=== PATIENT | female | born 2000 | race Caucasian/White ===

== ENCOUNTER 2018-03-09 22:38 | Outpatient (CLI) | payer MEDICAID, SELFPAY ==
[2018-03-09 23:24] VITALS: BMI 43.3
--- NOTE | 2018-03-10 08:17 | OB.TRI.NOTE ---
- Problem List (1) Decreased movement Status: Acute History of Present Illness Date of Service: 03/09/18 Was patient seen by the physician?: No Reason For Visit: DECREASED MOVEMENT Gestational age: 21 weeks Allergies No Known Allergies Allergy (Verified 03/09/18 23:20) Impression/Plan Pt presented with DFM at 21 weeks gestational age. +FHT obtained. Discharged home.
== END 2018-03-09 23:30 | disposition home or self-care (01) ==
LOC: WPOUT 23:07 → WP 23:08
PROVIDERS: Visit Provider Obstetrics & Gynecology
DX: O36.8120 Decreased fetal movements, second trimester, not applicable or unspecified (principal); Z3A.21 21 weeks gestation of pregnancy
CPT/HCPCS: 59050; 99218; G0378

== ENCOUNTER 2018-05-22 22:50 | Outpatient (CLI) | payer MEDICAID, SELFPAY ==
[2018-05-23 00:13] VITALS: BMI 46.7
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
== END 2018-05-23 00:43 | disposition home or self-care (01) ==
LOC: WPOUT 23:28 → WP 23:29
PROVIDERS: Referring Provider Obstetrics & Gynecology; Visit Provider Obstetrics & Gynecology
DX: O9A.213 Injury, poisoning and certain other consequences of external causes complicating pregnancy, third trimester (principal); S60.511A Abrasion of right hand, initial encounter; M79.10 Myalgia, unspecified site; V40.5XXA Car driver injured in collision with pedestrian or animal in traffic accident, initial encounter; Y93.9 Activity, unspecified; Y92.9 Unspecified place or not applicable; Y99.9 Unspecified external cause status; Z3A.32 32 weeks gestation of pregnancy
CPT/HCPCS: 59025; 59050; 99218; G0378

== ENCOUNTER 2018-07-04 20:27 | Outpatient (CLI) | payer MEDICAID, SELFPAY ==
[2018-07-04 21:07] VITALS: BMI 48.9
[2018-07-04 21:29] LABS: ROM Internal Control Test YES-OK TO RESULT pt. (Internal QC)
[2018-07-04 21:31] LABS: ROM Patient Test POSITIVE (Negative); Record Kit Lot#, ROM+ J7836
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
[2018-07-05 05:30] LABS: ROM Internal Control Test YES-OK TO RESULT pt. (Internal QC); ROM Patient Test Negative (Negative); Record Kit Lot#, ROM+ J7836
--- NOTE | 2018-07-05 10:02 | PCM.PN.BLA ---
Progress Note No leakage of fluid overnight per RN. Repeat ROM plus in AM negative. Discussed pt with Dr. Zarate for 2nd opinion. Will plan for fern and JILLIAN on Saturday in the office. Strict return precautions.
== END 2018-07-05 05:55 | disposition home or self-care (01) ==
LOC: WPOUT 20:52 → WP 20:52
PROVIDERS: Referring Provider Obstetrics & Gynecology; Visit Provider Obstetrics & Gynecology
DX: O26.893 Other specified pregnancy related conditions, third trimester (principal); N89.8 Other specified noninflammatory disorders of vagina
CPT/HCPCS: 59025; 59050; 76815; 84112; 99218; G0378

== ENCOUNTER 2018-07-12 18:15 | Outpatient (CLI) | payer MEDICAID, SELFPAY ==
[2018-07-12 18:30] VITALS: BMI 47.9
[2018-07-12 19:17] LABS: ROM Internal Control Test YES-OK TO RESULT pt. (Internal QC); ROM Patient Test Negative (Negative)
--- NOTE | 2018-07-12 20:12 | OB.TRI.NOTE ---
- Problem List (1) Vaginal discharge during Status: Acute History of Present Illness Date of Service: 07/12/18 Was patient seen by the physician?: Yes Reason For Visit: RULE OUT SROM Date of Service: 07/12/18 Final NOELLE: 07/16/18 Final NOELLE Source: US <20 weeks Gestational age: 39 Weeks and 3 Days History of Present Illness: presented to L&D with complaint of leakage of fluid, felt like she had increased discharge and unsure if her water broke. Denies contractions but feels some back pain at times. Denies vaginal bleeding or other concerns. Allergies No Known Allergies Allergy (Verified 05/23/18 00:14) Laboratory Studies: Laboratory Tests 07/12/18 Range/Units 18:35 Vag Amniotic Fld Detect Negative (Negative) Review of Systems Constitutional: Denies: Chills, Fever, Weight Change Cardiovascular: Denies: Chest Pain, Palpitations Respiratory: Denies: Cough, Shortness of breath at rest, Sputum production Gastrointestinal: Denies: Abdominal Pain, Nausea, Vomiting Genitourinary: Denies: Dysuria Physical Exam General: Alert, Oriented x3 HEENT: Atraumatic, Normocephalic Lungs: Normal air movement Extremities:: No edema CARBON CAPTURE POWER PLANT MANAGER: Normal external genitalia Presentation: Cephalic Cervix Dilation (cm): 3 - vertex Station: -1 Effacement (%): 70 NST - FHR Rate Baby A Baseline: 145 Variability:: Moderate Accelerations:: 15 x 15 Decelerations:: None NST Reactive:: Yes FHR Category:: Category I Uterine Activity:: Irregular Impression/Plan A:Category 1 FHT P: 1) ROM Plus negative, membranes intact. Reviewed signs of labor and ROM. 2) NST reactive 3) D/C home.
--- NOTE | 2018-07-12 20:17 | OB.TRI.HP_ITS ---
- Problem List (1) Vaginal discharge during Status: Acute History of Present Illness Date of Service: 07/12/18 Was patient seen by the physician?: Yes Reason For Visit: RULE OUT SROM Date of Service: 07/12/18 Final NOELLE: 07/16/18 Final NOELLE Source: US <20 weeks Gestational age: 39 Weeks and 3 Days History of Present Illness: presented to L&D with complaint of leakage of fluid, felt like she had increased discharge and unsure if her water broke. Denies contractions but feels some back pain at times. Denies vaginal bleeding or other concerns. Allergies No Known Allergies Allergy (Verified 05/23/18 00:14) Laboratory Studies: Laboratory Tests 07/12/18 Range/Units 18:35 Vag Amniotic Fld Detect Negative (Negative) Review of Systems Constitutional: Denies: Chills, Fever, Weight Change Cardiovascular: Denies: Chest Pain, Palpitations Respiratory: Denies: Cough, Shortness of breath at rest, Sputum production Gastrointestinal: Denies: Abdominal Pain, Nausea, Vomiting Genitourinary: Denies: Dysuria Physical Exam General: Alert, Oriented x3 HEENT: Atraumatic, Normocephalic Lungs: Normal air movement Extremities:: No edema DERRICK MAN: Normal external genitalia Presentation: Cephalic Cervix Dilation (cm): 3 - vertex Station: -1 Effacement (%): 70 NST - FHR Rate Baby A Baseline: 145 Variability:: Moderate Accelerations:: 15 x 15 Decelerations:: None NST Reactive:: Yes FHR Category:: Category I Uterine Activity:: Irregular Impression/Plan A:Category 1 FHT P: 1) ROM Plus negative, membranes intact. Reviewed signs of labor and ROM. 2) NST reactive 3) D/C home.
== END 2018-07-12 20:20 | disposition home or self-care (01) ==
LOC: WPOUT 18:20 → WP 18:21
PROVIDERS: Visit Provider Advanced Practice Midwife
DX: O26.93 Pregnancy related conditions, unspecified, third trimester (principal); N89.8 Other specified noninflammatory disorders of vagina; Z3A.39 39 weeks gestation of pregnancy
CPT/HCPCS: 59025; 59050; 84112; 99218; G0378

== ENCOUNTER 2018-07-22 09:20 | Inpatient (IN) | payer MEDICAID, SELFPAY ==
[2018-07-22] MEDS: Lactated Ringers 1,000 ML 50 ML IV ×2 (09:34→18:02)
[2018-07-22 09:38] VITALS: BMI 48.4
[2018-07-22 09:56] LABS: Absolute Lymphocyte Count 2.64 X10^3/ul (0.83-4.51); Absolute Neutrophil Count 10.2 X10^3/uL (2.0-7.7); Basophil# 0.01 X10^3/uL; Basophil% 0.1 % (0-1); Eosinophil# 0.18 X10^3/uL; Eosinophils% 1.3 % (0-5); Hematocrit 34.9 % (37-47); Hemoglobin 11.6 g/dl (12.0-15.0); Lymphocyte # 2.64 X10^3/ul (4.0); Lymphocyte % 18.5 % (19-41); Mean Corp Hgb Conc 33.2 g/gl (32-36); Mean Corpuscular Hgb 28.8 pg (27.0-32.0); Mean Corpuscular Volume 86.6 fL (81-99); Mean Platelet Vol. 10.3 fl (6.2-12.0); Monocyte# 1.14 X10^3/uL; Neutrophil # 10.21 X10^3/uL (2.7-7.7); Neutrophil % 71.7 % (47-70); Platelet Count 285 K/mm3 (150-450); RBC Distribution Width SD 43.7 fl (35.1-43.9); Red Blood Count 4.03 M/mm3 (4.2-5.4); White Blood Count 14.2 K/mm3 (4.4-11.0)
[2018-07-22 09:57] LABS: POSITIVE COUNT NO; POSITIVE DIFFERENTIAL NO; POSITIVE MORPHOLOGY NO
[2018-07-22] MEDS: Oxytocin 30 units/NS 500 ml 30 UNITS/500 ML IV.SOLN IV (10:03)
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
[2018-07-22] MEDS: fentaNYL-bupivacaine (epidural) 100 ML BAG EPIDURAL (18:02)
[2018-07-22] MEDS: Lactated Ringers 1,000 ML 15 ML IV (20:45)
[2018-07-22] MEDS: Oxytocin 30 units/NS 500 ml 30 UNITS/500 ML IV.SOLN 334 UNITS IV (20:45)
[2018-07-22] MEDS: Oxytocin 30 units/NS 500 ml 30 UNITS/500 ML IV.SOLN 167 UNITS IV (21:15)
--- NOTE | 2018-07-22 21:31 | PCM.OPRPT ---
Vaginal Delivery Maternal Presentation: Medically Indicated Induction Method of Induction: Pitocin, Amniotomy Medical Reason for Induction: Post term Amniotic Membrane Rupture Type: Artificial Amniotic Fluid Description: Clear Final NOELLE: 07/16/18 Gestational age: 40 Weeks and 6 Days Date of Procedure: 07/22/18 Pre-Operative Diagnosis: Post dates Post-Operative Diagnosis: Same Type of Anesthesia: Epidural Description of Procedure: Patient prepped & draped in stirrups when c/c/+3. She pushed to deliver head. head gently guided to allow deliver shoulders. No excess traction placed on head. Body followed & placed on maternal abdomen. 3VC clamped & cut in delayed fashion. Placenta delivered with gentle traction. Good uterine tone obtained. Presentation: CROW Placental Delivery Description: Expressed Placenta Disposition: [facility] Cord Vessel Description: 3 Vessels Cord Entanglement: None Estimated Blood Loss: 200ml A gender: Female (1 minute): 8 (5 minute): 9 Episiotomy Description: None Laceration: Vaginal Extension/lac - and first degree perineal - repaired with 3-0 vicryl Medications given after delivery: IV Pitocin Complications: None
--- NOTE | 2018-07-22 21:40 | OP.PCM_ITS ---
Vaginal Delivery Maternal Presentation: Medically Indicated Induction Method of Induction: Pitocin, Amniotomy Medical Reason for Induction: Post term Amniotic Membrane Rupture Type: Artificial Amniotic Fluid Description: Clear Final NOELLE: 07/16/18 Gestational age: 40 Weeks and 6 Days Date of Procedure: 07/22/18 Pre-Operative Diagnosis: Post dates Post-Operative Diagnosis: Same Type of Anesthesia: Epidural Description of Procedure: Patient prepped & draped in stirrups when c/c/+3. She pushed to deliver head. head gently guided to allow deliver shoulders. No excess traction placed on head. Body followed & placed on maternal abdomen. 3VC clamped & cut in delayed fashion. Placenta delivered with gentle traction. Good uterine tone obtained. Presentation: CROW Placental Delivery Description: Expressed Placenta Disposition: [facility] Cord Vessel Description: 3 Vessels Cord Entanglement: None Estimated Blood Loss: 200ml A gender: Female (1 minute): 8 (5 minute): 9 Episiotomy Description: None Laceration: Vaginal Extension/lac - and first degree perineal - repaired with 3- 0 vicryl Medications given after delivery: IV Pitocin Complications: None
[2018-07-22] MEDS: 0.9% Saline Lock 10 ML Syringe IV (22:25)
[2018-07-22] MEDS: Ibuprofen 600 MG Tablet PO (23:37)
[2018-07-23] VITALS: BP 119/66; PULSE 117; RESP 20; TEMP 37.1
[2018-07-23 04:06] VITALS: BP 95/51; PULSE 92; RESP 16; TEMP 36.6
[2018-07-23] MEDS: Ibuprofen 600 MG Tablet PO ×3 (06:41→21:57)
[2018-07-23 09:11] VITALS: BP 115/59; PULSE 90; RESP 16; TEMP 36.4
[2018-07-23 11:21] VITALS: BP 106/60; PULSE 91; RESP 16; TEMP 36.3
[2018-07-23 16:00] VITALS: BP 118/72; PULSE 69; RESP 17; TEMP 36.6; O2SAT 99
--- NOTE | 2018-07-23 20:00 | NURSING ---
Pt. called RN to room and asked for assistance with . When this RN walked into the room, pt. was standing holding and infant and crying. RN took infant and swaddled her and mother started crying more, stating she just won't stop crying, I don't know what to do. RN offered emotional support to pt. and helped settle the infant. Pt. calmed down for a little while, then got tearful again when talking on the phone to a friend/family member. RN reassured pt. that crying was okay and educated pt. about baby blues. Will continue to monitor pt's emotional status.
[2018-07-23 21:26] VITALS: BP 115/71; PULSE 100; RESP 16; TEMP 36.7; O2SAT 98
[2018-07-23] MEDS: Dibucaine 30 GM Tube 1 APPLIC TOPICAL (21:58)
[2018-07-24 02:18] VITALS: BP 119/62; PULSE 86; RESP 17; TEMP 36.6
[2018-07-24 08:00] VITALS: BP 113/72; PULSE 88; RESP 16; TEMP 36.6; O2SAT 97
[2018-07-24] MEDS: Ibuprofen 600 MG Tablet PO (08:00)
--- NOTE | 2018-07-24 08:19 | PCM.DCVAG ---
Discharge Diet: No Restrictions Discharge Activity: May Drive, May Shower May resume sexual activity in: 6 weeks Weight Bearing Status: Weight bearing as tolerated Additional Instructions: If you experience any of the following, contact your healthcare provider. Bleeding that soaks a pad every hour for 2 hours Fever 100.4 or higher Unrelieved incision or abdominal pain Swelling, redness, discharge or bleeding from your incision or episiotomy site Your incision begins to separate Problems urinating (including inability to urinate or burning while urinating). Visual changes Severe headache Flu-like symptoms Pain or redness in one of both of your breasts Pain, warmth, tenderness or swelling in your legs, especially the calf area Frequent nausea and vomiting Symptoms of depression or anxiety If you experience any of the following, call 911 or go to the nearest Emergency Room. Chest pain Problems breathing Seizure activity Partial or complete paralysis of a body part, slurred speech, weakness or drooping of the face, or a sudden inability to walk or hold your balance Allergies/Adverse Reactions: Allergies No Known Allergies Allergy (Verified 05/23/18 00:14) Medications to take at Discharge Vit No.130/Iron/Folic [ Tablet] 1 tab PO DAILY 03/09/18 Test Results: Test results from this visit will be discussed in further detail at your follow-up appointment, if applicable.
--- NOTE | 2018-07-24 08:20 | DCINST_ITS ---
Discharge Diet: No Restrictions Discharge Activity: May Drive, May Shower May resume sexual activity in: 6 weeks Weight Bearing Status: Weight bearing as tolerated Additional Instructions: If you experience any of the following, contact your healthcare provider. * Bleeding that soaks a pad every hour for 2 hours * Fever 100.4 or higher * Unrelieved incision or abdominal pain * Swelling, redness, discharge or bleeding from your incision or episiotomy site * Your incision begins to separate * Problems urinating (including inability to urinate or burning while urinating). * Visual changes * Severe headache * Flu-like symptoms * Pain or redness in one of both of your breasts * Pain, warmth, tenderness or swelling in your legs, especially the calf area * Frequent nausea and vomiting * Symptoms of depression or anxiety If you experience any of the following, call 911 or go to the nearest Emergency Room. * Chest pain * Problems breathing * Seizure activity * Partial or complete paralysis of a body part, slurred speech, weakness or drooping of the face, or a sudden inability to walk or hold your balance Allergies/Adverse Reactions: Allergies No Known Allergies Allergy (Verified 05/23/18 00:14) Medications to take at Discharge Vit No.130/Iron/Folic [ Tablet] 1 tab PO DAILY 03/09/18 Test Results: Test results from this visit will be discussed in further detail at your follow- up appointment, if applicable.
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
[2018-07-24] MEDS: Acetaminophen 500 MG Tablet 1000 MG PO (11:14)
[2018-07-24 14:30] VITALS: BP 124/86; PULSE 86; RESP 16; TEMP 36.6
== END 2018-07-24 15:15 | disposition home or self-care (01) | DRG 560 ==
PROVIDERS: Admitting Provider Obstetrics & Gynecology; Referring Provider Obstetrics & Gynecology; Visit Provider Obstetrics & Gynecology
DX: O48.0 Post-term pregnancy (principal); O99.214 Obesity complicating childbirth; E66.01 Morbid (severe) obesity due to excess calories; Z87.891 Personal history of nicotine dependence; Z3A.40 40 weeks gestation of pregnancy; Z37.0 Single live birth
CPT/HCPCS: 59025; 59050; 85025; 85461; 86850; 86900; 90384; 99218; J7120; A4216; G0378; J2790

== ENCOUNTER 2019-07-19 16:00 | Emergency (ER) | payer SELFPAY ==
[2019-07-19 16:00] VITALS: BP 140/74; PULSE 109; RESP 20; TEMP 37.2; O2SAT 97; BMI 41.5
--- NOTE | 2019-07-19 16:20 | EKG12_ITS ---
Test Reason : SOB Blood Pressure : / mmHG Vent. Rate : 089 BPM Atrial Rate : 089 BPM P-R Int : 106 ms QRS Dur : 088 ms QT Int : 374 ms P-R-T Axes : 035 034 027 degrees QTc Int : 455 ms Sinus rhythm with sinus arrhythmia with short DC Otherwise normal ECG Confirmed by CHRISTINA TRIMBLE, ÁNGEL ([id number]), pictures editor OTTO OTERO ([id number]) on 07/21/2019 11:17:49 AM Referred By: KARI Confirmed By:ÁNGEL VASQUEZ MD
--- NOTE | 2019-07-19 16:26 | NURSING ---
NO OLD EKGS
[2019-07-19] MEDS: 0.9% Normal Saline 1,000 ML 150 ML IV (16:51)
[2019-07-19 17:02] VITALS: BP 138/82; PULSE 84; RESP 21; TEMP 37; O2SAT 98
--- NOTE | 2019-07-19 17:19 | RAD_ITS ---
STUDY: X-RAY CHEST REASON FOR EXAM: Female, 19 years old. COUGH, SOB, SORE THROAT -- WORKS AT [employer] WITH +COVID- 19 PATIENTS TECHNIQUE: Frontal view COMPARISON: None. FINDINGS: The lungs are clear and expanded. There is no demonstrated pleural abnormality. Normal size heart. Normal mediastinum and julio. Normal visualized pulmonary arteries. Normal visualized aortic arch and descending thoracic aorta. Normal visualized thoracic spine. Normal visualized ribs, clavicles, and shoulders. There is no demonstrated abnormality of the visualized soft tissue structures of the upper abdomen. RAD/Chest 1 View (Portable) IMPRESSION: Normal x-ray examination of the chest. Electronically Signed: Luisito Umaña DO at 17:29 EDT Tel [phone], Service support ,
[2019-07-19 17:20] LABS: Absolute Lymphocyte Count 3.57 X10^3/uL (0.83-4.51); Absolute Neutrophil Count 5.1 X10^3/uL (2.0-7.7); Basophil# 0.05 X10^3/uL; Basophil% 0.5 % (0-1); Eosinophil# 0.72 X10^3/uL; Eosinophils% 7.2 % (0-5); Hematocrit 43.5 % (37-47); Hemoglobin 14.2 g/dL (12.0-15.0); Lymphocyte # 3.57 X10^3/ul (4.0); Lymphocyte % 35.6 % (19-41); Mean Corp Hgb Conc 32.6 g/dL (32-36); Mean Corpuscular Hgb 28.4 pg (27.0-32.0); Mean Platelet Vol. 10.6 fl (6.2-12.0); Monocyte# 0.54 X10^3/uL; Monocyte% 5.4 % (0-10); NRBC Flagged by Analyzer 0 % (0-5); Neutrophil # 5.12 X10^3/uL (2.7-7.7); Neutrophil % 50.9 % (47-70); Platelet Count 294 K/mm3 (150-450); RBC Distribution Width CV 13.7 % (11.6-14.6); RBC Distribution Width SD 42.6 fl (35.1-43.9)
[2019-07-19 17:40] LABS: Anion Gap 5 (5-15); BUN 10 mg/dL (7-18); BUN/Creat Ratio 12.2 RATIO (10-20); Calcium,Total 8.8 mg/dL (8.5-10.1); Chloride 109 mmol/L (98-107); Creatinine, Serum 0.82 mg/dL (0.55-1.02); EST Glomerular Filtration Rate 93 mL/min (>60); Est Glom Filt Rate - Afr Amer 113 mL/min (>60); Estimated Creatinine Clearance 81.89 ml/min; Glucose 101 mg/dL (74-106); Potassium 5.1 mmol/L (3.5-5.1); Sodium Level 139 mmol/L (136-145)
--- NOTE | 2019-07-19 17:46 | ED.DCSUM_ITS ---
- ER Visit Summary Date of Service: 07/19/19 Chief Complaint: [Cough and shortness of breath] History of Present Illness: The patient is a 19 F [presents to the ER with symptoms for 6 days. Patient denies any fever. Patient has been wheezing at times and has been using an inhaler that she got from a friend which seems to help her.] Patient does not have a history of asthma. 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 Patient denies any fever. She denies sore throat. Physical Examination: [HEENT-PERRLA, EOMI. Cranial nerves II through XII grossly intact. TMs clear. Mucous membranes moist. No adenopathy. Cardiovascular-regular rate and rhythm without murmur or ectopy Lungs-good aeration bilaterally. Patient does have some faint expiratory wheezes. No accessory muscle use or retractions. Abdomen-normoactive bowel sounds, soft, nontender, no rebound or rigidity, no peritoneal signs. Extremities-intact ?4, normal range of motion, normal pulses, atraumatic] Test Results: [CBC with differential is normal. Chemistries normal. Chest x- ray was normal.] Emergency Department Course and Treatment: [Patient was given albuterol MDI 4 puffs. Patient will be started on prednisone.] Treatment Plan: [We will treat with albuterol MDI and prednisone. I did speak with the health department who allowed us to test her for COVID-19 and those results will be pending. Patient will be advised not to work until her results have returned. Commended self-isolation.] Disposition: [Discharged home in stable condition] Impression: [Viral URI with wheezing] This note was generated with charity: wateration software. It may contain incorrect words, spelling, and punctuation that were not noted in review of the chart prior to signing
--- NOTE | 2019-07-19 17:48 | ED.DEP ---
ED Disposition - Plan for ED Patient: Instructions: ED Bronchitis Asthmatic Prescriptions: Prednisone [Deltasone] 20 mg PO BID #10 tab Prescription Printed Referrals: Mekhi Obregon MD [STAFF PHYSICIAN] - 5-7 Days
--- NOTE | 2019-07-22 09:00 | ED.RN ---
PT CALLED AND INFORMED THAT HER COVID TEST WAS NEGATIVE
== END 2019-07-19 18:11 | disposition home or self-care (01) ==
LOC: ED 17:40
PROVIDERS: Emergency Provider Emergency Medicine
DX: J06.9 Acute upper respiratory infection, unspecified (principal); R06.2 Wheezing; Z72.0 Tobacco use; Z20.828 Contact with and (suspected) exposure to other viral communicable diseases
CPT/HCPCS: 71045; 80048; 83605; 85025; 87040; 87635; 93005; 96360; 99284; G2023; J7030; U0004

== ENCOUNTER 2019-09-16 11:45 | Emergency (ER) | payer SELFPAY ==
[2019-09-16 11:46] VITALS: BP 149/105; PULSE 111; RESP 17; TEMP 36.4; O2SAT 96; BMI 42.5
[2019-09-16 12:21] LABS: Absolute Lymphocyte Count 2.68 X10^3/uL (0.83-4.51); Absolute Neutrophil Count 10.4 X10^3/uL (2.0-7.7); Basophil# 0.03 X10^3/uL; Basophil% 0.2 % (0-1); Eosinophil# 0.43 X10^3/uL; Hematocrit 41.5 % (37-47); Hemoglobin 13.8 g/dL (12.0-15.0); Lymphocyte # 2.68 X10^3/ul (4.0); Mean Corp Hgb Conc 33.3 g/dL (32-36); Mean Corpuscular Hgb 29.1 pg (27.0-32.0); Mean Corpuscular Volume 87.6 fL (81-99); Mean Platelet Vol. 10.3 fl (6.2-12.0); Monocyte# 0.57 X10^3/uL; NRBC Flagged by Analyzer 0 % (0-5); Neutrophil # 10.35 X10^3/uL (2.7-7.7); Neutrophil % 73.4 % (47-70); Platelet Count 286 K/mm3 (150-450); RBC Distribution Width CV 13.2 % (11.6-14.6); RBC Distribution Width SD 42.2 fl (35.1-43.9); Red Blood Count 4.74 M/mm3 (4.2-5.4); White Blood Count 14.1 K/mm3 (4.4-11.0)
[2019-09-16 12:33] LABS: Anion Gap 5 (5-15); BUN 10 mg/dL (7-18); BUN/Creat Ratio 11.3 RATIO (10-20); Calcium,Total 8.4 mg/dL (8.5-10.1); Chloride 111 mmol/L (98-107); Creatinine, Serum 0.89 mg/dL (0.55-1.02); EST Glomerular Filtration Rate 85 mL/min (>60); Est Glom Filt Rate - Afr Amer 103 mL/min (>60); Estimated Creatinine Clearance 75.45 ml/min; Glucose 109 mg/dL (74-106); Potassium 3.8 mmol/L (3.5-5.1); Sodium Level 139 mmol/L (136-145)
[2019-09-16 12:46] LABS: Mucous, Urine 0 SEEN /hpf (<or=2+); Red Blood Cells-Urine 0 SEEN /hpf (0-5); White Blood Cells 0 SEEN /hpf (0-5)
[2019-09-16 12:53] LABS: Color, Urine Yellow (Yellow); Glucose, Dipstick Normal (Normal); Ketone-Dipstick Negative (Negative); Leukocyte Esterase-Dipstick Negative /ul (Negative); Nitrite-Dipstick Negative (Negative); Occult Blood-Urine Negative /ul (Negative); Protein-Dipstick 15 mg/dl (Negative); Specific Gravity, Urine 1.015 (1.002-1.030); Urine Bilirubin Dipstick Negative (Negative); Urine Clarity Sl. Cloudy (Clear); Urine Urobilinogen Normal (Normal)
[2019-09-16 12:54] LABS: Internal QC Validated? YES +Cl - CLEAR BKGD; Pregnancy, Serum, hCG Quali. NEGATIVE Negative
[2019-09-16 12:59] LABS: Bacteria 1+ /hpf (None Seen); Squamous Epithelial Cells - UA 0-5 SEEN /hpf (5-10)
[2019-09-16 14:00] VITALS: BP 139/89; PULSE 95; RESP 18; O2SAT 97
--- NOTE | 2019-09-16 14:05 | CT_ITS ---
STUDY: CT ABDOMEN AND PELVIS WITH CONTRAST REASON FOR EXAM: Female, 19 years old. PT STATED LEFT SIDE PAIN, R/O DIVERTICULITIS PER ORDERING PHYS RADIATION DOSAGE (If Supplied By Facility): CTDIvol = ( 15.21 ) mGy, DLP = ( 1113.24 ) mGycm TECHNIQUE: Transaxial images were obtained from the dome of the diaphragm to the symphysis pubis without oral contrast. IV 100mL Isovue-300 was administered. Sagittal and coronal images were reconstructed. Individualized dose optimization techniques were used for this CT. COMPARISON: None. FINDINGS: The visualized lung bases are unremarkable. The visualized portions of the heart are within normal limits. Normal liver. Normal gallbladder and extrahepatic biliary system. Normal spleen. Normal pancreas. Normal bilateral adrenal glands. Normal right kidney. Normal left kidney. Normal visualized stomach. There is evidence of a circumferential wall thickening and increased markings in the surrounding peritoneal fat in the region of the terminal ileum. This is suggestive of a terminal ileitis and Crohn''s disease. Small lymph nodes are also seen in the mesentery in the right lower quadrant suggestive of mesenteric adenitis. Normal colon. The appendix is visualized and appears normal. Normal abdominal aorta. Normal inferior vena cava. Normal retroperitoneum. Normal urinary bladder. Normal abdominal wall. Normal osseous structures. CT/Abdomen/Pelvis W IV Cont ONLY IMPRESSION: Findings suggestive of a terminal ileitis/Crohn''s disease involving the terminal ileum with increased markings in the surrounding peritoneal fat and thickening of the bowel wall. Electronically Signed: David Ferrell, at 15:09 EDT , Service support ,
--- NOTE | 2019-09-16 14:06 | ED.VIS.GEN ---
History of Present Illness Chief Complaint: Abd Pain Informant: Patient Narrative: Patient is a 19-year-old previously healthy female who presents to the emergency department for left-sided abdominal pain. This started acutely around 7 AM this morning. She denies ever having this happen to her before in the past. She states that the pain is currently a 3 out of 10 but it does wax and wane. It does get up to a 9 out of 10. This is associated with nausea. She does not know any aggravating or relieving factors. She denies any urinary symptoms. No vaginal bleeding or discharge. Her last menstrual cycle was 2 weeks ago. Any changes in bowel habits including any diarrhea, constipation or blood in the stool. She has not had any episodes of vomiting. No fevers or chills. No previous abdominal surgeries. No radiation of her pain into her back. He does smoke cigarettes. Denies any alcohol or drug use. Past Medical History - Allergies and Home Meds Allergies/Adverse Reactions: Allergies No Known Allergies Allergy (Verified 09/16/19 11:45) Primary Care Physician: NOT,DEFINED [NON-STAFF] - 2 Days Smoking Status: Current every day smoker Review of Systems All systems negative except as indicated General: Denies: Chills, Fever, Sweats Eyes: Denies: Visual changes - bilaterally, Diplopia ENT: Denies: Rhinorrhea, Sore throat Cardiovascular: Denies: Chest pain, Palpitations Respiratory: Denies: Dyspnea, Cough, Dyspnea on exertion Gastrointestinal: Reports: Abdominal pain, Nausea. Denies: Vomiting, Diarrhea, Constipation, Melena, Hematochezia Genitourinary: Denies: Dysuria, Hematuria, Frequency Musculoskeletal: Denies: Back pain, Extremity Pain Skin: Denies: Rash, Wounds Neurological: Denies: Headache, Weakness, Numbness Physical Exam Vital Signs/Narrative: Vital Signs Temp Pulse Resp BP Pulse Ox 09/16/19 14:00 95 18 139/89 H 97 09/16/19 11:46 97.6 F L 111 H 17 149/105 H 96 Inital Vital Signs reviewed: Yes General: Well nourished, Well developed, Obese, No Acute Distress Head: Normocephalic, Atraumatic Eyes: Perrl, EOMI ENT: Moist mucous membranes, No rhinorrhea Neck: Supple, Nontender Cardiovascular: Regular rate, Regular rhythm, No murmurs Respiratory: No distress, CTA bilaterally, Chest nontender Abdomen: Soft, Nondistended, Normal bowel sounds, Tender - Left sided lateral to umbilicus. Some pain when pushing on the right side causing left-sided pain. No rebound or guarding.. Negative for: Psoas sign, Rovsig's sign, Gomez's sign Rectal: Deferred Back: Nontender, Normal Inspection. Negative for: CVA tenderness Extremities: Nontender, No edema Skin: Normal color, No rash Neurological: Alert, Oriented x3, Cranial nerves II-XII grossly intact, Normal Strength, Normal Sensation Psychological: Normal affect, Normal Mood Diagnostic/Tx/Re-eval - Medical Decision Making Patient presented to the emerge department for abdominal pain that started today. It waxes and wanes and it is currently mild. Physical exam was benign except for some mild abdominal tenderness. No peritoneal signs on physical exam. Very low concern for ovarian torsion. Basic lab work obtained along with CT scan of the abdomen/pelvis. This was significant for ileitis versus Crohn's infection. She denies any family history of this before in the past. She denies any blood in the stool. Her symptoms have been very mild throughout ED stay. She does need to follow-up with her PCP for possible GI referral if her symptoms do not resolve. Will treat symptomatically in the meantime. Warning signs and symptoms for which to return to the emergency department including developing any systemic symptoms or worsening abdominal pain. This time will discharge home in stable condition. She understands and is agreeable with this plan. ED Disposition - Plan for ED Patient: Disposition: Home or Assisted Living Diagnosis: Abdominal pain, Ileitis, Nausea Instructions: ED Abdominal Pain Unkn Cause Fem Prescriptions: Naproxen [Naprosyn] 500 mg PO BID PRN PRN 10 Days #20 tab PRN Reason: Pain Or Fever Prescription Printed Ondansetron [Zofran Odt] 4 mg PO Q8H PRN PRN 4 Days #10 tab PRN Reason: Nausea Prescription Printed Referrals: NOT,DEFINED [NON-STAFF] - 2 Days
[2019-09-16 14:35] LABS: AST(SGOT) 10 U/L (15-37); Alanine Aminotransfer ALT/SGPT 18 U/L (13-56); Albumin, Serum 3.1 g/dL (3.2-5.0); Alkaline Phosphatase 85 U/L (45-117); Bilirubin, Direct 0.07 mg/dL (0.00-0.30); Globulin 4.1 g/dL (2.2-4.2); Lipase 44 U/L (73-393); Protein, Total 7.2 g/dL (6.4-8.2)
== END 2019-09-16 15:20 | disposition home or self-care (01) ==
PROVIDERS: Emergency Provider Emergency Medicine
DX: K52.9 Noninfective gastroenteritis and colitis, unspecified (principal); R10.9 Unspecified abdominal pain; K59.00 Constipation, unspecified; E66.9 Obesity, unspecified; F17.210 Nicotine dependence, cigarettes, uncomplicated
CPT/HCPCS: 74177; 80048; 80076; 81001; 83690; 84703; 85025; 99284; Q9967; A4216

== ENCOUNTER 2019-11-23 16:04 | Emergency (ER) | payer SELFPAY ==
[2019-11-23 16:06] VITALS: BP 110/51; PULSE 104; RESP 20; TEMP 36.6; O2SAT 95; BMI 43.2
[2019-11-23 16:10] VITALS: O2SAT 95
--- NOTE | 2019-11-23 16:16 | RAD_ITS ---
STUDY: X-RAY CHEST REASON FOR EXAM: Female, 19 years old. SOB, COUGH TECHNIQUE: Frontal and lateral views of the chest COMPARISON: None. FINDINGS: The lungs are clear and expanded. There is no demonstrated pleural abnormality. Normal size heart. Normal mediastinum and julio. Normal visualized pulmonary arteries. Normal visualized aortic arch and descending thoracic aorta. Normal visualized thoracic spine. Normal visualized ribs, clavicles, and shoulders. There is no demonstrated abnormality of the visualized soft tissue structures of the upper abdomen. RAD/Chest PA and Lateral IMPRESSION: Normal x-ray examination of the chest. Electronically Signed: Gladys Posada, at 17:25 EDT Tel , Service support ,
--- NOTE | 2019-11-23 16:16 | ED.VIS.GEN ---
History of Present Illness Chief Complaint: Shortness of Breath Informant: Patient Onset: Weeks - 1 week Context: Gradual Onset Current Severity: Mild Maximum Severity: Moderate Narrative: Patient presents with 1 week history of shortness of breath and lung tightness with occasional cough. She states her lungs feel tight. She has been using her sisters inhaler with some improvement. She denies fever or chills. 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 - Past Medical History (1) Scoliosis Status: Chronic Past Medical History - Allergies and Home Meds Allergies/Adverse Reactions: Allergies No Known Allergies Allergy (Verified 11/23/19 16:06) Primary Care Physician: Care Physician,No Primary [Primary Care Provider] - Prior records reviewed: Yes Lives: With Family Smoking Status: Former smoker Review of Systems General: Denies: Chills, Fever Eyes: Denies: Visual changes - bilaterally ENT: Denies: Bilateral ear pain, Sore throat Cardiovascular: Reports: Chest pain - Lungs feel tight Respiratory: Reports: Dyspnea, Cough Gastrointestinal: Denies: Abdominal pain, Nausea, Vomiting Genitourinary: Denies: Dysuria Musculoskeletal: Denies: Myalgias, Swelling, Extremity Pain Skin: Denies: Rash Neurological: Denies: Headache Hematologic: Denies: Easy bruising, Easy bleeding Allergy: Denies: Uticaria Physical Exam Vital Signs/Narrative: Vital Signs Temp Pulse Resp BP Pulse Ox 11/23/19 16:06 97.8 F 104 H 20 H 110/51 L 95 Inital Vital Signs reviewed: Yes General: Well nourished, Well developed Head: Normocephalic ENT: Moist mucous membranes, TM's clear, - - Steer pharynx examination normal. Neck: Supple Cardiovascular: Regular rate, Regular rhythm Respiratory: No distress, - - Expiratory wheezes with decreased air movement throughout. Abdomen: Soft, Nontender Extremities: Nontender Skin: Normal color, No rash Neurological: Alert, Oriented x3 Psychological: Normal affect Diagnostic/Tx/Re-eval Impressions Chest X-Ray 11/23/19 16:16 IMPRESSION: Normal x-ray examination of the chest. Electronically Signed: Gladys Posada, at 17:25 EDT Tel , Service support , 11/23/19 16:16 Chest PA and Lateral [RAD] Stat - Medical Decision Making Patient was given DuoNeb treatment along with 2 albuterol's. She was given p.o. prednisone. On repeat evaluation she does have improved air movement. Chest x-ray is negative. Covid test was sent as a send out. Patient be given prescription for albuterol, doxycycline, prednisone. ED Disposition - Plan for ED Patient: Disposition: Home or Assisted Living Diagnosis: Bronchitis with bronchospasm Instructions: Acute Bronchitis Prescriptions: Prednisone [Deltasone] 40 mg PO DAILY #10 tab Transmission Status: Pending to [id number] Doxycycline 100 mg PO BID #20 cap Transmission Status: Pending to [id number] Albuterol Inhaler [Ventolin Hfa] 1 - 2 puff INHALATION Q4H PRN PRN #1 inhaler PRN Reason: Wheezing Transmission Status: Pending to [id number] Referrals: Neela Prescott MD [STAFF PHYSICIAN] - As Needed
[2019-11-23] MEDS: predniSONE 20 MG Tablet 60 MG PO (16:19)
[2019-11-23] MEDS: Ipratropium/Albuterol Sulfate 3 ML AMPUL.NEB INHALATION (16:33)
[2019-11-23 16:36] VITALS: PULSE 96; RESP 21; O2SAT 93
[2019-11-23 17:00] VITALS: PULSE 109; RESP 21; O2SAT 95
[2019-11-23] MEDS: Albuterol 2.5 MG/3 ML VIAL.NEB. INHALATION ×2 (17:00→17:06)
[2019-11-23 17:22] VITALS: O2SAT 94
== END 2019-11-23 17:58 | disposition home or self-care (01) ==
PROVIDERS: Emergency Provider Emergency Medicine
DX: J40 Bronchitis, not specified as acute or chronic (principal); J98.01 Acute bronchospasm; M41.9 Scoliosis, unspecified; Z79.899 Other long term (current) drug therapy; Z87.891 Personal history of nicotine dependence
CPT/HCPCS: 71046; 87635; 94640; 99283; C9803; U0003

== ENCOUNTER 2020-04-22 13:41 | Emergency (ER) | payer MEDICAID, SELFPAY ==
[2020-04-22 13:41] VITALS: BP 109/67; PULSE 105; RESP 22; O2SAT 95
[2020-04-22 13:42] VITALS: BP 140/52; BP 140/82; PULSE 110; RESP 24; TEMP 36.9; O2SAT 98; BMI 43.2
[2020-04-22 14:00] VITALS: O2SAT 95
--- NOTE | 2020-04-22 14:55 | ED.VIS.DYS ---
History of Present Illness Chief Complaint: Shortness of Breath Informant: Patient Onset: Yesterday Activity at onset: - Timing: Continuous Quality: Wheezing Current Severity: Moderate Maximum Severity: Moderate Worsened by: Coughing Relieved by: Nothing. Not Relieved By: Albuterol Associated Symptoms: Cough - [employer], Rhinorrhea - and congestion, Sore throat. Negative for: Fever Chest Pain: Tightness - and heaviness Narrative: 19-year-old female around 5 weeks, LNMP 03/20/2020, presenting with chest heaviness and tightness, cough, shortness of breath, started yesterday evening and has worsened into today. Feels like her asthma but worse. She has an albuterol inhaler she was using it but it did not help at all. She denies having had coronavirus or contact with anybody that she knows of with it recently. Denies any fevers, chills, myalgias, headache. - Past Medical History (1) Asthma Status: Chronic (2) Scoliosis Status: Chronic Past Medical History - Allergies and Home Meds Allergies/Adverse Reactions: Allergies No Known Allergies Allergy (Verified 04/22/20 13:45) Primary Care Physician: Care Physician,No Primary [Primary Care Provider] - Smoking Status: Former smoker Review of Systems General: Denies: Chills, Fever, Sweats Eyes: Denies: Visual changes - bilaterally, Diplopia ENT: Reports: Rhinorrhea, Sore throat. Denies: Bilateral ear pain Cardiovascular: Reports: Chest pain. Denies: Palpitations Respiratory: Reports: Dyspnea, Cough. Denies: Sputum Gastrointestinal: Denies: Abdominal pain, Nausea, Vomiting, Diarrhea, Melena, Hematochezia Genitourinary: Denies: Dysuria, Hematuria, Frequency Musculoskeletal: Denies: Myalgias, Back pain, Extremity Pain Skin: Denies: Rash, Wounds Neurological: Denies: Headache, Weakness, Numbness Physical Exam Vital Signs/Narrative: Vital Signs Temp Pulse Resp BP Pulse Ox 04/22/20 13:42 98.4 F 110 H 24 H 140/52 H 98 04/22/20 13:41 105 H 22 H 109/67 95 Inital Vital Signs reviewed: Yes General: Well nourished, Well developed, Obese, No Acute Distress Head: Normocephalic, Atraumatic Eyes: Perrl, EOMI ENT: Moist mucous membranes, No rhinorrhea Neck: Supple, Nontender, No lymphadenopathy, No JVD Cardiovascular: Regular rate, Regular rhythm, No murmurs Respiratory: No distress - Conversive in full sentences, Chest nontender, Wheezing. Negative for: Rales, Rhonchi Abdomen: Soft, Nontender, Nondistended, Normal bowel sounds Back: Nontender, Normal Inspection Extremities: Nontender, No edema. Negative for: Calf Tenderness Skin: Normal color, No rash, No Trauma Neurological: Alert, Oriented x3, Cranial nerves II-XII grossly intact, Normal Strength, Normal Sensation, Normal Gait Psychological: Normal affect, Normal Mood Diagnostic/Tx/Re-eval Chest X-Ray - ED: 1 View, Read by ED Physician, No Acute Disease, No Infiltrates Clinical Impression(s) from Imaging Studies Chest X-Ray 04/22/20 15:16 IMPRESSION: Normal x-ray examination of the chest. Electronically Signed: David Ferrell MD at 15:29 EST , Service support , Treatment - Dyspnea: Albuterol, Atrovent, Steroid Repeat Evaluation: Improved - Medical Decision Making Vital signs are stable patient is breathing better after nebulizer treatment although she still feels a little tight and heavy, symptoms are better. I think this is all consistent with an asthma exacerbation which the patient agrees with, she used those exact words. She does have cough. These are nonspecific upper respiratory tract infection symptoms, during the pandemic, and although she has no contact with anyone with coronavirus that she knows of, she agreed with sending a test, we sent PCR as an outpatient and she will quarantine until that returns. Sent home with a prescription for prednisone and she is comfortably discharged at this time. ED Disposition - Plan for ED Patient: Disposition: Home or Assisted Living Diagnosis: Acute asthma exacerbation, Viral URI with cough Instructions: ED Asthma, Acute (Adult) Prescriptions: Prednisone [Deltasone] 40 mg PO DAILY #10 tab Transmission Status: Pending to [id number] Referrals: Doctor,Your [STAFF PHYSICIAN] - 3-5 Days if not improving
--- NOTE | 2020-04-22 15:16 | RAD_ITS ---
STUDY: X-RAY CHEST REASON FOR EXAM: Female, 19 years old. Pat with cough and sob starting last night. TECHNIQUE: Single AP portable view of the chest. COMPARISON: Comparison is made with prior examination dated 11/23/2019. FINDINGS: The lungs are clear and expanded. There is no demonstrated pleural abnormality. Normal size heart. Normal mediastinum and julio. Normal visualized pulmonary arteries. Normal visualized aortic arch and descending thoracic aorta. Normal visualized thoracic spine. Normal visualized ribs, clavicles, and shoulders. There is no demonstrated abnormality of the visualized soft tissue structures of the upper abdomen. RAD/Chest 1 View (Portable) IMPRESSION: Normal x-ray examination of the chest. Electronically Signed: David Ferrell MD at 15:29 EST , Service support ,
[2020-04-22] MEDS: predniSONE 20 MG Tablet 40 MG PO (15:23)
[2020-04-22 15:26] VITALS: PULSE 86; RESP 20
[2020-04-22] MEDS: Albuterol 2.5 MG/3 ML VIAL.NEB. INHALATION (15:26)
[2020-04-22] MEDS: Ipratropium/Albuterol Sulfate 3 ML AMPUL.NEB INHALATION (15:26)
[2020-04-22 16:24] VITALS: BP 120/84; PULSE 120; RESP 20; O2SAT 94
== END 2020-04-22 16:25 | disposition home or self-care (01) ==
PROVIDERS: Emergency Provider Emergency Medicine
DX: O99.511 Diseases of the respiratory system complicating pregnancy, first trimester (principal); J45.901 Unspecified asthma with (acute) exacerbation; J06.9 Acute upper respiratory infection, unspecified; Z20.822 Contact with and (suspected) exposure to COVID-19; M41.9 Scoliosis, unspecified; Z87.891 Personal history of nicotine dependence; Z3A.01 Less than 8 weeks gestation of pregnancy
CPT/HCPCS: 71045; 87635; 94640; 99283; U0005; U0003

== ENCOUNTER 2020-07-30 00:16 | Emergency (ER) | payer MEDICAID, SELFPAY ==
[2020-07-30 00:17] VITALS: BP 137/77; PULSE 86; RESP 15; TEMP 36.6; O2SAT 100; BMI 45.8
--- NOTE | 2020-07-30 00:48 | EDS_ITS ---
HPI History of Present Illness Chief Complaint: Dental Informant: patient Onset/Context/Timing Onset: Days (3-4) Context: Gradual Onset Timing: Continuous Quality: throbbing Location: right upper > lower teeth Current Severity: Severe Maximum Severity: Severe Worsened by: eating Relieved by: NSAIDs (partially) and Topicals (partially) Associated Symptoms Assocated Symptom - Dental: Negative for fever, jaw swelling or face swelling Narrative Narrative: Patient has known cavities, she went to a dentist and is supposed to go back and about 1-2 weeks in order to get some work done on these affected teeth that are now hurting a lot more than they were before. She denies any systemic symptoms or discharge, bleeding, swelling. She is already on a moxicillin for it from her dentist. PFSH PFSH Medical History Scoliosis Home Medications Caplet 1 cap PO DAILY 04/22/20 [History Last Taken Unknown] aspirin 81 mg PO DAILY 07/30/20 [History Last Taken Unknown] hydrocodone-acetaminophen 1 tab PO Q6H PRN PRN 3 Days #12 tablet 07/30/20 [Rx Last Taken Unknown] magnesium 500 mg PO BID 07/30/20 [History Last Taken Unknown] Allergy/AdvReac Type Severity Reaction Status Date / Time No Known Allergies Allergy Verified 07/30/20 00:20 Social History Smoking Status: Light Smoker (<10/day) ROS ROS ED Constitutional Constitutional ED: Denies chills or fever(s) Eyes Eyes: Denies change in vision or double vision ENT ENT ED: Reports dental pain; Denies sinus pain or throat swelling Cardiovascular Cardiovascular: Denies chest pain or palpitations Respiratory/Chest Respiratory/Chest: Denies cough or dyspnea Integumentary Denies abscess or rash Neurologic Neurologic: Denies headache(s), paresthesias or weakness EXAM Physical Exam Const Vital Signs: 07/30/20 00:17 Temperature 97.9 F Temperature Source Temporal Pulse Rate 86 Respiratory Rate 15 Blood Pressure 137/77 H Blood Pressure Mean 97 Pulse Ox 100 Oxygen Delivery Method Room Air Positive well nourished and well developed General Appearance ED: well developed and NAD HEENT Face and Sinus: sinuses nontender Teeth and Gingiva: other Other Details: There is obvious crissy/defect in tooth #30, which is mildly tender. The most tender teeth in the right maxillary row, bicuspid and first molar, appear unremarkable without associated gingivitis, abscess, bleeding. No trismus. Throat: posterior oropharynx normal Eyes PERRL and EOMs intact bilaterally Neck no lymphadenopathy and supple Resp normal respiratory effort Neuro oriented x3 and CN's II-XII intact bilaterally Sensorium / Orientation: alert Gait (Neuro): normal gait Psych mental status grossly normal and thought process normal Skin no rashes or lesions noted and no wounds MDM MDM MDM Narrative Medical decision making narrative: Patient is also 19 weeks. She has been taking acetaminophen, using ice packs, and topicals in managing her discomfort. I think it is reasonable to prescribe her a short amount of [place], she does not have a history of addiction, she understands that there is a risk/benefit with regards to the baby, and to use as few as necessary to get through. This patient is reasonable and I think that she will not abuse this prescription. Discharge Plan Triage Chief Complaint: Dental ED Provider: Tim Burton Dx/Rx/DC Orders Clinical Impression: Dental caries, Odontalgia Instructions: ED Dental Pain Prescriptions: New hydrocodone-acetaminophen 5-325 mg tablet 1 tab PO Q6H PRN PRN (Reason: Pain) 3 Days Qty: 12 RF: 0 No Action Caplet 1 cap PO DAILY RF: 0 magnesium 500 mg Tablet 500 mg PO BID RF: 0 aspirin 81 mg Tablet 81 mg PO DAILY RF: 0 Primary Care Provider: Care Physician,No Primary Referrals: Care Physician,No Primary [Primary Care Provider] - Dentist,Your [STAFF PHYSICIAN] - As soon as possible Disposition Disposition: Home, self care
== END 2020-07-30 01:19 | disposition home or self-care (01) ==
LOC: ED 00:58
PROVIDERS: Emergency Provider Emergency Medicine
DX: O99.612 Diseases of the digestive system complicating pregnancy, second trimester (principal); K02.9 Dental caries, unspecified; K08.89 Other specified disorders of teeth and supporting structures; Z79.82 Long term (current) use of aspirin; Z79.899 Other long term (current) drug therapy; Z3A.19 19 weeks gestation of pregnancy
CPT/HCPCS: 99282

== ENCOUNTER 2020-12-19 06:50 | Inpatient (IN) | payer MEDICAID, SELFPAY ==
[2020-12-19] VITALS (39 sets, daily range): BP systolic 105–141; BP diastolic 56–86; PULSE 82–130; RESP 16; TEMP 36.1–37.3; O2SAT 92–100; BMI 48.1
[2020-12-19] MEDS: Lactated Ringers 1,000 ML 50 ML IV (07:55)
[2020-12-19 08:11] LABS: Absolute Lymphocyte Count 2.89 X10^3/uL (0.83-4.51); Absolute Neutrophil Count 9.9 X10^3/uL (2.0-7.7); Basophil# 0.04 X10^3/uL; Basophil% 0.3 % (0-1); Eosinophil# 0.24 X10^3/uL; Eosinophils% 1.7 % (0-5); Hematocrit 36.2 % (37-47); Lymphocyte # 2.89 X10^3/ul (0.83-4.51); Lymphocyte % 20.6 % (19-41); Mean Corp Hgb Conc 33.1 g/dL (32-36); Mean Corpuscular Hgb 29.5 pg (27.0-32.0); Mean Corpuscular Volume 88.9 fL (81-99); Mean Platelet Vol. 10.4 fl (6.2-12.0); Monocyte# 0.89 X10^3/uL; Monocyte% 6.3 % (0-10); NRBC Flagged by Analyzer 0 % (0-5); Neutrophil # 9.88 X10^3/uL (2.7-7.7); Neutrophil % 70.2 % (47-70); Platelet Count 274 K/mm3 (150-450); RBC Distribution Width SD 45.1 fl (35.1-43.9); Red Blood Count 4.07 M/mm3 (4.2-5.4); White Blood Count 14.1 K/mm3 (4.4-11.0)
--- NOTE | 2020-12-19 08:24 | HP.PCM.OB_ITS ---
HPI - General General Date of Admission: 12/19/20 HPI Narrative HEIDI NOWAK, is a 20 F who presents at 39w1d. for elective induction of labor. History of COVID in at 33 weeks and prepregnancy weight 239. complicated by obesity, smoking but stopped early in first trimester, rh negative, and scoliosis. FOB at bedside with patient today. Maternal Data Information NOELLE Calculator Estimated Delivery Date Method Current WG Current Estimate 12/25/20 Manual 39w 1d PFSH PFSH Medical History Scoliosis Home Medications Caplet 1 cap PO DAILY 04/22/20 [History Last Taken 12/18/20 10:00] aspirin 81 mg PO DAILY 07/30/20 [History Last Taken 12/18/20 10:00] hydrocodone-acetaminophen 1 tab PO Q6H PRN PRN 3 Days #12 tablet 07/30/20 [Rx Last Taken 08/15/20] magnesium 500 mg PO BID 07/30/20 [History Last Taken 10/16/20] Allergy/AdvReac Type Severity Reaction Status Date / Time No Known Allergies Allergy Verified 07/30/20 00:20 Social History Smoking Status: Former smoker History Elective abortions Hx Para 1 Spontaneous abortions Hx # Term Pregnancies Ectopic pregnancies Hx # Pregnancies Multiple births # of living children NST FHR Rate Baby A Baseline: 135 Variability:: Minimal Accelerations:: 15 x 15 Decelerations:: None FHR Category:: Category II Uterine Activity:: Irregular ROS Constitutional Constitutional: Reports systems reviewed and no addt'l complaints, except as documented; Denies headache(s) Eyes Eyes: Denies acute decrease in peripheral vision, blurry vision or change in vision ENT HEENT: Reports systems reviewed and no addt'l complaints, except as documented Cardiovascular Cardiovascular: Denies chest pain or dizziness Respiratory/Chest Respiratory/Chest: Denies cough, dyspnea, dyspnea on exertion, shortness of coty ath at rest or shortness of breath with exertion Gastrointestinal Gastrointestinal: Denies abdominal pain, diarrhea, nausea or vomiting Genitourinary Genitourinary: Denies abdominal discomfort or movement Musculoskeletal Musculoskeletal: Denies limited range of motion Integumentary Integumentary: Reports systems reviewed and no addt'l complaints, except as documented Neurologic Neurologic: Reports systems reviewed and no addt'l complaints, except as documented Psychiatric Psychiatric: Reports systems reviewed and no addt'l complaints, except as docum ented Endocrine Endocrinology: Reports systems reviewed and no addt'l complaints, except as documented Hematologic/Lymphatic Hematologic/Lymphatic: Reports systems reviewed and no addt'l complaints, except as documented Allergic/Immunologic Allergic/Immunologic: Reports systems reviewed and no addt'l complaints, except as documented Vital Signs Vital Signs Vital Signs: 12/19/20 07:30 12/19/20 07:31 Temperature 98.1 F Temperature Source Temporal Pulse Rate 112 H Blood Pressure 119/69 BP Systolic 119 BP Diastolic 69 Pulse Ox 98 Weight Weight: 254 lb 13.67 oz Body Mass Index (BMI) 48.1 Physical Exam Const alert and oriented x3 General Appearance: cooperative Orientation / Consciousness: awake, oriented to person, oriented to place and oriented to time Exam Limitations: no limitations HEENT normocephalic Head and Scalp: normal to inspection, normocephalic and atraumatic Face and Sinus: normal facial exam Eyes General Eye: normal appearance of both eyes Neck full ROM Chest Chest: symmetrical chest wall rise Resp normal respiratory effort and normal air movement Auscultation: clear to auscultation bilaterally Cardio regular rate, regular rhythm, S1 normal heart sound, S2 normal heart sound, no murmurs, no rub, no gallops and no clicks GI normal to inspection, nondistended, normoactive bowel sounds and non-tender appearance of the vagina normal Bladder / Kidney Exam: no CVA tenderness Manual OB Exam: estimated gestational size appropriate, presentation cephalic, dilated 4, effaced 70 and station -1 Back/Spine normal ROM Extremity normal to inspection and full ROM Skin no rashes or lesions noted Neuro oriented x3, CN's II-XII intact bilaterally and moves all extremities Sensorium / Orientation: awake, alert and oriented to person Motor Exam: clonus absent Deep Tendon Reflexes: Rt Patellar (L4): 2+ and Lt Patellar (L4): 2+ Labs Labs Labs: Blood Type O NEGATIVE Antibody Screen NEGATIVE Hct 36.2 % (37-47) L Hgb 12.0 g/dL (12.0-15.0) Rhogam given: Yes RPR negative GBS negative O negative GC/CT negative Urine tox screen negative COVID negative on 12/17/20 HIV negative HBsAG negative Hep C negative Rubella Immune Anatomy US showed ventriculomegaly but follow up on 11/23/20 normal neuroanatomy. Assessment & Plan (1) Obesity affecting : (2) History of COVID-19: (3) History of smoking: (4) Encounter for induction of labor: PLAN: 1) Admit to labor and delivery. IOL for obesity and history of COVID in . Elective IOL, reviewed r/b/a and patient would like to proceed. 2) Routine labs 3) COVID negative 4) GBS negative 5) Continuous EFM 6) Pitocin per protocol 7) Epidural for pain management upon request 8) Declines LARC immedicate PP 9) collaborative physician and notified of patient status
[2020-12-19] MEDS: Oxytocin 30 units/NS 500 ml 30 UNITS/500 ML IV.SOLN IV (08:35)
[2020-12-19] MEDS: Lactated Ringers 500 ML 999 ML IV (12:53)
[2020-12-19] MEDS: fentaNYL-bupivacaine (epidural) 100 ML BAG EPIDURAL (13:20)
[2020-12-19] MEDS: Lactated Ringers 1,000 ML 200 ML IV (14:05)
[2020-12-19] MEDS: Oxytocin 30 units/NS 500 ml 30 UNITS/500 ML IV.SOLN 334 UNITS IV (15:10)
--- NOTE | 2020-12-19 15:20 | OP.PCM_ITS ---
Assessment & Plan (1) Vaginal delivery: (2) First degree perineal laceration: Maternal Data Information NOELLE Calculator Estimated Delivery Date Method Current WG Current Estimate 12/25/20 Manual 39w 1d Vaginal Delivery Maternal Presentation Maternal Presentation: Elective Induction Type of Induction: Pitocin Operative Information Date of Procedure: 12/19/20 Pre-Operative Diagnosis: Induction of labor Post-Operative Diagnosis: Surgery / Procedure Performed: Spontaneous Vaginal Delivery Type of Anesthesia: Epidural Estimated Blood Loss: 300 ml Time of Delivery: 15:08 Findings Description of Procedure: Progressed to complete with strong urge to push. Epidural effective for pain management. of viable male over first degree perineal laceration. APGARS 8,9. head delivered with body forthcoming. Infant placed on maternal abdomen, strong cry. Mouth and nares suc tioned for secretions. Pitocin started for active 3rd stage management. Cord clamped and cut by FOB after pulsations ceased. Placenta delivered with expression via zafar, intact, 3vessel cord. Perineum inspected and revealed first degree laceration, repaired under epidural analgesia and 3.0 vicryl rapide. Fundus firm and hemostasis achieved. EBL 300ml. Vaginal sweep completed by me. Sponge and instrument count correct. Mom and baby stable, family bonding well. Weight pending. notified of patient delivery and collaborative physician. Presentation: Vertex and CROW Amniotic Membrane Rupture Type: Artificial Amniotic Fluid Description: Clear Placental Delivery Description: Expressed Placenta Disposition: [facility] Cord Vessel Description: 3 Vessels Cord Entanglement: None A Gender: Male (1 minute): 8 (5 minute): 9 Delayed Cord Clamping: Yes Post Vaginal Delivery Medications Given After Delivery: IV Pitocin Episiotomy Description: None Laceration: Perineal Extension/lac and 1st degree Complication Complications: None
[2020-12-19] MEDS: 0.9% Saline Lock 10 ML Syringe IV (18:01)
--- NOTE | 2020-12-19 18:02 | NURSING ---
Yuly hawkins'd pt for approximately 200 cc at 1520 following delivery.
[2020-12-19] MEDS: Acetaminophen 500 MG Tablet 1000 MG PO (20:05)
[2020-12-20 01:31] VITALS: BP 120/66; PULSE 97; RESP 18
[2020-12-20 04:45] VITALS: BP 153/86; PULSE 83; RESP 18
[2020-12-20] MEDS: Ibuprofen 600 MG Tablet PO (04:48)
[2020-12-20 07:44] VITALS: BP 126/76; PULSE 79; RESP 16; TEMP 36.4
--- NOTE | 2020-12-20 08:40 | PCM.PN.OB ---
Subjective Subjective No complaints Objective Data Objective Data Vital Signs: Vital Signs Temp Pulse Resp BP Pulse Ox 97.6 F L 79 16 126/76 H 98 12/20/20 07:44 12/20/20 07:44 12/20/20 07:44 12/20/20 07:44 12/19/20 17:31 Oxygen Delivery Method Room Air Weight: 254 lb 13.67 oz Body Mass Index (BMI) 48.1 Intake & Output: Intake and Output for Last 24 Hours 12/18/20 12/19/20 12/20/20 23:59 23:59 23:59 Intake Total 1518.03 / 1518.03 Output Total 1550 / 1550 Balance -31.97 / -31.97 Lab / Micro Data Result Diagrams: 12/19/20 07:55 Labs: Laboratory Results - last 24 hr 12/19/20 07:55: Blood Type O NEGATIVE, Antibody Screen NEGATIVE Physical Exam Const alert, oriented x3 and no apparent distress HEENT normocephalic GI soft to palpation, non-tender and non-distended GI Narrative: fundus firm, mid & below umbilicus Extremity normal to inspection and no calf tenderness Assessment & Plan (1) Vaginal delivery: COMMENT: PPD#1 PLAN: D/c home later today
--- NOTE | 2020-12-20 08:41 | PCM.DC ---
Discharge Instructions Diet Discharge Diet: No restrictions Activity Discharge Activity: May Shower May resume sexual activity in: 6 weeks Weight Bearing Status: Weight bearing as tolerated Dressing / Incision Call your doctor if you observe: Fever of 101 or Higher, Coldness, Increased Pain, Change in Color, Inability to urinate, Inability to have a bowel movement, Using more than 1 pad per hour, Shortness of breath, Dizziness, Fainting spells, Chest pain, Increased palpitations (irregular heartbeat), Calf discomfort and Uncontrolled pain Follow Up Care Please Follow Up With: Ginette Queen CNM When: Follow up in 2 and 6 weeks for visits. Test Results: Test results from this visit will be discussed in further detail at your follow-up appointment, if applicable. Discharge Plan Admission Admit Date/Time: 12/19/20 06:50 Primary Reason for Your Visit: Vaginal delivery Attending Provider: Ginette Queen Primary Care Provider: Tristin Physician,No Primary Discharge Orders/Prescriptions Prescriptions: New acetaminophen 500 mg Tablet 1,000 mg PO Q6H PRN PRN (Reason: Pain 1-10 Or Fever) Qty: 0 RF: 0 ibuprofen 600 mg Tablet 600 mg PO Q6H PRN PRN (Reason: Pain Score 1-3) Qty: 0 RF: 0 Continued Caplet 1 cap PO DAILY RF: 0 magnesium 500 mg Tablet 500 mg PO BID RF: 0 Discontinued aspirin 81 mg Tablet 81 mg PO DAILY RF: 0 hydrocodone-acetaminophen 5-325 mg tablet 1 tab PO Q6H PRN PRN (Reason: Pain) 3 Days Qty: 12 RF: 0 Referrals / Follow Up: Care Physician,No Primary [Primary Care Provider] - Disposition Disposition (needs filled in before D/C Order can be placed): Home, Self Care
[2020-12-20 12:30] VITALS: BP 127/64; PULSE 76; RESP 16; TEMP 36.5
[2020-12-20 15:38] LABS: Hematocrit 36.9 % (37-47); Hemoglobin 12.1 g/dL (12.0-15.0); Mean Corp Hgb Conc 32.8 g/dL (32-36); Mean Corpuscular Hgb 29.2 pg (27.0-32.0); Mean Corpuscular Volume 89.1 fL (81-99); Mean Platelet Vol. 10.5 fl (6.2-12.0); Platelet Count 273 K/mm3 (150-450); RBC Distribution Width CV 14.3 % (11.6-14.6); RBC Distribution Width SD 46.2 fl (35.1-43.9); Red Blood Count 4.14 M/mm3 (4.2-5.4); White Blood Count 14.8 K/mm3 (4.4-11.0)
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
[2020-12-20 16:11] VITALS: BP 140/82; PULSE 80; RESP 16; TEMP 36.7
== END 2020-12-20 16:25 | disposition home or self-care (01) | DRG 560 ==
PROVIDERS: Admitting Provider Advanced Practice Midwife; Referring Provider Advanced Practice Midwife; Visit Provider Advanced Practice Midwife
DX: O99.214 Obesity complicating childbirth (principal); E66.9 Obesity, unspecified; O70.0 First degree perineal laceration during delivery; Z79.82 Long term (current) use of aspirin; Z86.16 Personal history of COVID-19; Z87.891 Personal history of nicotine dependence; Z3A.39 39 weeks gestation of pregnancy; Z37.0 Single live birth
CPT/HCPCS: 59025; 59050; 85025; 85027; 86850; 86900; 86901; 99218; J7120; A4216; G0378

== ENCOUNTER 2021-11-18 09:23 | Emergency (ER) | payer MEDICAID, SELFPAY ==
[2021-11-18 09:25] VITALS: BP 136/78; PULSE 95; RESP 17; TEMP 35.6; O2SAT 91; BMI 46.2
[2021-11-18 09:30] VITALS: BP 124/75; PULSE 81; RESP 16; TEMP 36; O2SAT 100
[2021-11-18 09:31] VITALS: BP 124/75; PULSE 92; RESP 16; TEMP 36; O2SAT 100
--- NOTE | 2021-11-18 09:35 | RAD_ITS ---
STUDY: X-RAY CHEST REASON FOR EXAM: Female, 21 years old. cough TECHNIQUE: Single AP portable view of the chest. COMPARISON: 04/22/2020 FINDINGS: The lungs are clear and expanded. There is no demonstrated pleural abnormality. Normal size heart. Normal mediastinum and julio. Normal visualized pulmonary arteries. Normal visualized aortic arch and descending thoracic aorta. Normal visualized thoracic spine. Normal visualized ribs, clavicles, and shoulders. There is no demonstrated abnormality of the visualized soft tissue structures of the upper abdomen. RAD/Chest 1 View (Portable) IMPRESSION: Normal x-ray examination of the chest. Electronically Signed: Tyson Edwards MD at 10:01 EDT ,
--- NOTE | 2021-11-18 09:36 | EDS_ITS ---
HPI History of Present Illness Chief Complaint: Shortness of Breath Informant: patient Narrative Narrative: 21-year-old female presenting to the emergency room with the chief complaint of cough shortness of breath. She states that for about 1 week she has had a mild cough and rhinorrhea. She had notes sore throat. She had negative home COVID test. Beginning yesterday she began to have dyspnea. She notes a history of asthma and states that her albuterol inhaler has not been helping her. No reported fevers vomiting or diarrhea. [facility] Medical History (Updated 11/18/21 @ 09:44 by Slime Mcdaniel) Asthma Asthma Family history of hearing loss at age younger than 7 years depression Scoliosis Home Medications acetaminophen 500 mg tablet 1,000 mg PO Q6H PRN PRN Pain 1-10 Or Fever #0 tabs 12/20/20 [Rx Last Taken Unknown] ibuprofen 600 mg tablet 600 mg PO Q6H PRN PRN Pain Score 1-3 #0 tabs 12/20/20 [Rx Last Taken Unknown] albuterol sulfate 90 mcg/actuation aerosol inhaler (Ventolin HFA) 2 puff inhalation Q4H PRN PRN Wheezing ##1 11/18/21 [Rx Last Taken Unknown] prednisone 20 mg tablet 60 mg PO DAILY #12 TABLETS 11/18/21 [Rx Last Taken Unknown] Allergy/AdvReac Type Severity Reaction Status Date / Time No Known Allergies Allergy Verified 11/18/21 09:30 Social History Smoking Status: Smoker, status unknown ROS ROS ED Constitutional Constitutional ED: Denies chills, fever(s) or weight loss Eyes Eyes: Denies change in vision or diplopia ENT ENT ED: Reports rhinorrhea and sore throat; Denies ear pain Cardiovascular Cardiovascular: Denies chest pain, orthopnea, palpitations or racing heartbeat Respiratory/Chest Respiratory/Chest: Reports cough and dyspnea; Denies orthopnea Gastrointestinal Gastrointestinal: Denies abdominal pain, diarrhea, nausea or vomiting Genitourinary Genitourinary ED: Denies dysuria, hematuria or urinary frequency Musculoskeletal Musculoskeletal: Denies arthralgias or myalgias Integumentary Denies abscess or rash Neurologic Neurologic: Denies headache(s) or weakness Psychiatric Psychiatric: Denies anxiety, depression, suicidal ideation or suicidal thoughts Endocrine Endocrinology: Denies polydipsia, polyphagia or polyuria Allergic/Immunologic Allergic/Immunologic ED: Denies mouth swelling, tongue swelling or urticaria EXAM Physical Exam Const Vital Signs: 11/18/21 09:25 11/18/21 09:30 11/18/21 09:31 Temperature 96.0 F L 96.8 F L 96.8 F L Temperature Source Temporal Temporal Temporal Pulse Rate 95 81 92 Respiratory Rate 17 16 16 Respiratory Effort Respiratory Depth Respiratory Pattern Blood Pressure 136/78 H 124/75 H 124/75 H Blood Pressure Mean 97 91 91 Pulse Ox 91 100 100 Oxygen Delivery Method Room Air Room Air Room Air 11/18/21 09:47 11/18/21 09:47 Temperature Temperature Source Pulse Rate 94 Respiratory Rate 18 Respiratory Effort Short of Breath Labored Respiratory Depth Normal Respiratory Pattern Normal Blood Pressure Blood Pressure Mean Pulse Ox Oxygen Delivery Method Room Air Positive well nourished, well developed and obese General Appearance ED: well developed Nutritional Appearance: obese HEENT Reports normocephalic, head/scalp atraumatic and moist mucous membranes Eyes PERRL and EOMs intact bilaterally Neck no lymphadenopathy, supple and no JVD Resp normal respiratory effort Auscultation: wheezes expiratory wheezes and throughout and diminished lung sounds Cardio regular rate, regular rhythm and no murmurs GI normal to inspection, nondistended, normoactive bowel sounds and non-tender Palpation: soft Back/Spine no CVA tenderness and normal ROM Extremity normal to inspection General Extremety ED: Negative for edema General Extremity: Negative for edema Neuro oriented x3 and CN's II-XII intact bilaterally Sensorium / Orientation: alert Motor Exam: strength 5/5 throughout Psych mental status grossly normal Mood & Affect: Negative for depressed or tearful Skin no rashes or lesions noted and no wounds MDM MDM MDM Narrative Medical decision making narrative: My interpretation of the chest x-ray is no acute process. COVID swab was negative. Patient received a DuoNeb and albuterol in addition to prednisone. Repeat examination finds the patient to be satting at 94% on room air. Her lung sounds are clear. She clinically feels improved. At this point patient will be discharged home. I can refill on her inhaler with spacer and 4 additional days of prednisone. Radiography Diagnostic Testing: Clinical Impression(s) from Imaging Studies Chest X-Ray 11/18/21 09:35 IMPRESSION: Normal x-ray examination of the chest. Electronically Signed: Tyson Edwards MD at 10:01 EDT , Discharge Plan Triage Chief Complaint: Shortness of Breath ED Provider: Vinny Castle Dx/Rx/DC Orders Clinical Impression: Asthma exacerbation, Viral URI with cough Instructions: ED Asthma, Acute (Adult) Prescriptions: New prednisone 20 mg tablet 60 mg PO DAILY Qty: 12 0RF albuterol sulfate [Ventolin HFA] 90 mcg/actuation HFA aerosol inhaler 2 puff inhalation Q4H PRN PRN (Reason: Wheezing) Qty: 1 0RF Rx Instructions: Dispense with Spacer No Action acetaminophen 500 mg Tablet 1,000 mg PO Q6H PRN PRN (Reason: Pain 1-10 Or Fever) Qty: 0 0RF ibuprofen 600 mg Tablet 600 mg PO Q6H PRN PRN (Reason: Pain Score 1-3) Qty: 0 0RF Primary Care Provider: Care Physician,No Primary Referrals: Care Physician,No Primary [Primary Care Provider] - Luis Angel Reyna ASSOCIATE MARKETING MANAGER, ASSOCIATE MARKETING MANAGER-C [Med Staff - Adv Practice Prof] - As Needed (for primary care) Disposition Disposition: Home, Self Care
[2021-11-18] MEDS: predniSONE 20 MG Tablet 60 MG PO (09:43)
[2021-11-18 09:47] VITALS: PULSE 94; RESP 18; O2SAT 92
[2021-11-18] MEDS: Ipratropium/Albuterol Sulfate 3 ML AMPUL.NEB INHALATION (09:47)
[2021-11-18] MEDS: Albuterol 2.5 MG/3 ML VIAL.NEB. INHALATION ×3 (09:47)
[2021-11-18 10:20] VITALS: BP 138/79; PULSE 82; RESP 16; O2SAT 97
== END 2021-11-18 10:21 | disposition home or self-care (01) ==
PROVIDERS: Emergency Provider Emergency Medicine; Visit Provider Emergency Medicine
DX: J45.901 Unspecified asthma with (acute) exacerbation (principal); J06.9 Acute upper respiratory infection, unspecified; F17.200 Nicotine dependence, unspecified, uncomplicated; E66.9 Obesity, unspecified; Z20.822 Contact with and (suspected) exposure to COVID-19; Z79.52 Long term (current) use of systemic steroids
CPT/HCPCS: 71045; 87811; 94640; 99283